=== PATIENT | male | born 1970 | race Caucasian/White ===

== ENCOUNTER 2018-07-25 23:06 | Emergency (ER) | payer MEDICAID ==
[~2018-07-25] VITALS: Ht 182.9 cm; Wt 74.8 kg
[2018-07-25 23:17] VITALS: BP 141/85
[2018-07-26] MEDS ORDERED: TETANUS-DIPTH-ACEL PERTUSSIS 0.5ML SYRG IM ONE (02:45)
== END 2018-07-26 04:11 | disposition home or self-care (01) ==
LOC: ER 23:11
DX: S61.431A Puncture wound without foreign body of right hand, initial encounter (principal); W45.0XXA Nail entering through skin, initial encounter; Y93.89 Activity, other specified; Y99.8 Other external cause status; Y92.89 Other specified places as the place of occurrence of the external cause
CPT/HCPCS: 73130; 90471; 90715

== ENCOUNTER → 2024-09-27 | Outpatient (CLI) | payer MEDICAID ==
[2024-09-27 09:37] LABS: Urine Bacteria None Seen /hpf (None Seen)
[2024-09-27 09:46] LABS: Basophils # (auto) 0.1 10 ^3/uL (0-0.2); Basophils % (auto) 1.2 % (0.0-2.0); Eosinophils # (auto) 0.4 10 ^3/uL (0-0.8); Eosinophils % (auto) 5.9 % (0.0-7.0); Hematocrit 49.3 % (41.0-53.0); Hemoglobin 17.1 g/dL (13.5-17.5); Lymphocytes # (auto) 1.8 10 ^3/uL (0.4-5.4); Lymphocytes % (auto) 25.1 % (10.0-50.0); Mean Corpuscular Hemoglobin 30.2 pg (28.0-32.0); Mean Corpuscular Hgb Conc. 34.8 g/dL (32.0-36.0); Mean Corpuscular Volume 86.6 fL (80.0-100.0); Monocytes # (auto) 0.9 10 ^3/uL (0-1.3); Monocytes % (auto) 12.6 % (0.0-12.0); Neutrophils # (auto) 3.9 10 ^3/uL (1.6-8.6); Neutrophils % (auto) 55.2 % (37.0-80.0); Nucleated Red Blood Cells % 0.1 %; Platelet Count (auto) 329 10^3/uL (140-450); Red Blood Cells 5.69 10^6/uL (4.5-5.90); Red Cell Distribution Width 13.9 % (11.8-14.3); White Blood Cell 7.1 10^3/uL (4.4-10.8)
[2024-09-27 10:04] LABS: Alanine Aminotransferase 20 U/L (7-40); Albumin 4.7 g/dL (3.2-4.8); Anion Gap 7 (5-15); Aspartate Aminotransferase 19 U/L (13-40); BUN/Creatinine Ratio 14.2 (10.0-20.0); Bilirubin, Total 1.1 mg/dL (0.2-1.0); Blood Urea Nitrogen 20 mg/dL (9-23); Carbon Dioxide 27 mmol/L (20-31); Chloride 107 mmol/L (98-107); Potassium 4.1 mmol/L (3.5-5.1); Sodium 141 mmol/L (136-145); Total Protein 7.5 g/dL (5.7-8.2)
[2024-09-27 10:06] LABS: Alkaline Phosphatase 161 U/L (46-116); Calcium 10.5 mg/dL (8.7-10.4); Cholesterol 206 mg/dL (< 200); Glucose 108 mg/dL (74-106); HDL Cholesterol 34 mg/dL (40-59); LDL Cholesterol 139 mg/dL (< 100); Triglycerides 215 mg/dL (< 150)
[2024-09-27 10:23] LABS: Urine Blood Negative /uL (Negative); Urine Clarity Clear (Clear); Urine Color Light-Yellow (Yellow); Urine Mucus FEW (None Seen); Urine Protein, UAD Negative (Negative); Urine Specific Gravity 1.014 (1.001-1.035); Urine Squamous Epithelial Cell None Seen /hpf (<5); Urine Urobilinogen Normal (Negative); Urine WBC 3 /HPF (0-3); Urine pH 5.5 (5.0-9.0)
== END | disposition home or self-care (01) ==
LOC: LAB 09:19
PROVIDERS: ATTEND Internal Medicine
DX: Z00.00 Encounter for general adult medical examination without abnormal findings (principal)
CPT/HCPCS: 36415; 80053; 80061; 81001; 83036; 84153; 85025

== ENCOUNTER → 2024-11-21 | Outpatient (CLI) | payer MEDICAID ==
[2024-11-21 15:44] LABS: Alanine Aminotransferase 23 U/L (7-40); Albumin 4.4 g/dL (3.2-4.8); Anion Gap 10 (5-15); Aspartate Aminotransferase 24 U/L (13-40); BUN/Creatinine Ratio 11.4 (10.0-20.0); Blood Urea Nitrogen 16 mg/dL (9-23); Calcium 9.5 mg/dL (8.7-10.4); Carbon Dioxide 24 mmol/L (20-31); Chloride 107 mmol/L (98-107); Sodium 141 mmol/L (136-145); Total Protein 6.9 g/dL (5.7-8.2)
[2024-11-21 15:45] LABS: Bilirubin, Total 1.2 mg/dL (0.2-1.0)
[2024-11-21 16:00] LABS: Alkaline Phosphatase 133 U/L (46-116); Glucose 137 mg/dL (74-106)
[2024-11-21 16:20] LABS: Hepatitis A Ab IgM Negative; Hepatitis B Surface Antigen Negative (Negative)
[2024-11-21 16:28] LABS: Hepatitis B Core IgM Negative (Negative); Hepatitis C Antibody Negative (Negative)
[2024-11-22 07:07] LABS: AFP Serum Tumor Marker 6.4 ng/mL (0.0-8.4)
[2024-11-22 08:07] LABS: Alpha-1-Antitrypsin 153 mg/dL (101-187); Anti-Nuclear Antibody Direct Negative (Negative); Anti-dsDNA Antibody <1 IU/mL (0-9); Antiscleroderma-70 Antibody <0.2 AI (0.0-0.9); Complement C3 124 mg/dL (82-167); Immunoglobulin A 190 mg/dL (90-386); Immunoglobulin G, Serum 1092 mg/dL (603-1613); Immunoglobulin M 114 mg/dL (20-172); RNP Antibody 0.7 AI (0.0-0.9); Rheumatoid Arthritis Factor <10.0 IU/mL (<14.0); Sjogren's Anti-SS-A Antibody 0.4 AI (0.0-0.9); Sjogren's Anti-SS-B Antibody <0.2 AI (0.0-0.9); Smith Antibody <0.2 AI (0.0-0.9); Thyroid Peroxidase (TPO) Ab <9 IU/mL (0-34)
[2024-11-23 14:06] LABS: Actin (Smooth Muscle) Antibody 8 Units (0-19); Mitochondrial (M2) Antibody <20.0 Units (0.0-20.0)
== END | disposition home or self-care (01) ==
LOC: LAB 14:16
PROVIDERS: ATTEND Internal Medicine
DX: N18.2 Chronic kidney disease, stage 2 (mild) (principal); E78.5 Hyperlipidemia, unspecified; R74.8 Abnormal levels of other serum enzymes
CPT/HCPCS: 36415; 80053; 80074; 82103; 82105; 82390; 82728; 82784; 86160; 86225; 86235; 86376; 86431